=== PATIENT | female | born 1995 | race Caucasian/White ===

== ENCOUNTER 2017-01-25 16:39 | Emergency (ER) | payer OTHER | END 2017-01-25 19:25 | disposition home or self-care (01) | LOC: ER1 16:39 | DX: L03.213 Periorbital cellulitis (principal); Z91.030 Bee allergy status | CPT/HCPCS: 99283 ==

== ENCOUNTER 2017-01-27 08:23 | Emergency (ER) | payer OTHER | END 2017-01-27 09:10 | disposition home or self-care (01) | LOC: ER1 08:23 | DX: R21 Rash and other nonspecific skin eruption (principal) | CPT/HCPCS: 82962; 99282 ==

== ENCOUNTER 2021-07-21 16:12 | Emergency (ER) | payer SELFPAY ==
[~2021-07-21 16:12] MED LIST: ZOFRAN4 MG PO
[2021-07-21] MEDS ORDERED: PROVENTIL HFA6.7 GM INH (20:59)
[2021-07-21] MEDS ORDERED: OMNICEF 300 MG300 MG PO (20:59)
[2021-07-21] MEDS ORDERED: BENZONATATE100 MG PO (20:59)
== END 2021-07-21 21:00 | disposition home or self-care (01) ==
LOC: ER1 16:12
DX: J18.9 Pneumonia, unspecified organism (principal); Z20.822 Contact with and (suspected) exposure to COVID-19
CPT/HCPCS: 0240U; 71045; 87081; 87880; 99283